=== PATIENT | female | born 1960 | race African-American/Black ===

== ENCOUNTER 2017-10-10 08:13 | Outpatient (CLI) | payer BC ==
[2017-10-10] MEDS ORDERED: KINEVAC IV ONE (09:41)
[2017-10-10] MEDS: KINEVAC IV ONE (09:48)
--- NOTE | 2017-10-10 12:25 | Ultrasound Report ---
ULTRASOUND ABDOMEN COMPLETE: TECHNIQUE: Transabdominal ultrasound with color Doppler interrogation. HISTORY: abdominal pain, right upper quadrant abdominal pain. COMPARISON: none. FINDINGS: LIVER: Normal. BILIARY SYSTEM: Normal. PANCREAS: Normal. SPLEEN: Normal. KIDNEYS: Normal. AORTA/IVC: Normal. ASCITES: None. IMPRESSION: Unremarkable exam.
== END 2017-10-10 08:14 | disposition home or self-care (01) ==
LOC: NM 08:13
PROVIDERS: ATTEND Internal Medicine Gastroenterology
DX: K30 Functional dyspepsia (principal); R10.11 Right upper quadrant pain
CPT/HCPCS: 76700; 78227; A9537; J2805